=== PATIENT | female | born 1945 | race Hispanic/Latino ===

== ENCOUNTER 2017-02-16 08:44 | Outpatient (CLI) | payer MEDICARE, OTHER ==
--- NOTE | 2017-02-16 09:20 | Mammography Report ---
BONE DENSITY STUDY: DEFINITIONS: BMD = Bone Mineral Density T-score = BMD related to mean peak bone mass of young adult (mean expressed in Standard Deviation) Z-score = Age matched BMD expressed in SD World Health Organization (WHO) Diagnostic Criteria Normal T-score > -1 SD Osteopenia T-score between -1 and -2.4 SD Osteoporosis T-score -2.5 SD or below FINDINGS: The weighted average BMD of lumbar spine L1-L4 is 1.036 with a T-score of -0.1. The weighted average BMD of the left hip is 0.784 with a T-score of -1.3. When compared to prior exam in 2015 there is mild generalized improvement in the bone density of the lumbar spine and mild worsening of the left hip. IMPRESSION: The patient's average T-score is diagnostic for osteopenia and average relative risk for fracture. NOTE: BMD is not the only risk factor for fracture; also consider factors such as the patient's age, risk of falling, previous osteoporotic fracture, family history of osteoporotic fractures, current smoker, and low body weight. Vivas's triangle is a region of interest in femur, predominantly of trabecular bone. It is not a true anatomic site, and [facility] does not recommend its use clinically.
== END 2017-02-16 08:45 | disposition home or self-care (01) ==
LOC: MAMMO 08:44
PROVIDERS: ATTEND Family Medicine
DX: M85.88 Other specified disorders of bone density and structure, other site (principal); I10 Essential (primary) hypertension; E78.00 Pure hypercholesterolemia, unspecified
CPT/HCPCS: 77080

== ENCOUNTER 2019-01-07 13:15 | Emergency (ER) | payer MEDICARE, OTHER ==
[2019-01-07] MEDS ORDERED: CARDIZEM IV ONE (13:29)
[2019-01-07] MEDS ORDERED: CARDIZEM ONE (13:29)
[2019-01-07 13:50] LABS: Basophils % (Auto) 0.8 % (0.0-1.8); Eosinophils # (Auto) 0.2 K/mm3 (0.0-0.4); Eosinophils % (Auto) 3.3 % (0.0-4.3); Hematocrit 44.4 % (30.3-42.9); Hemoglobin 15.1 gm/dl (10.1-14.3); Lymphocytes # (Auto) 2.2 K/mm3 (1.2-5.4); Lymphocytes % (Auto) 35.3 % (13.4-35.0); Mean Corpuscular HGB Conc 34 % (30-34); Mean Corpuscular Volume 86 fl (79-97); Monocytes # (Auto) 0.5 K/mm3 (0.0-0.8); Monocytes % (Auto) 8.1 % (0.0-7.3); Platelet Count 256 K/mm3 (140-440); Red Blood Count 5.15 M/mm3 (3.65-5.03)
[2019-01-07 14:10] LABS: Creatine Kinase MB 4.2 ng/mL (0.0-4.0)
[2019-01-07 14:11] LABS: BUN/Creatinine Ratio 20; Blood Urea Nitrogen 10 mg/dL (7-17); Calcium 9.9 mg/dL (8.4-10.2); Hemolysis Index 15
--- NOTE | 2019-01-07 14:12 | Emergency Department Report ---
ED General Adult HPI - General Chief complaint: Arrhythmia/Palpitations Stated complaint: CHEST PAIN Time Seen by Provider: 01/07/19 13:28 Source: patient, EMS Mode of arrival: Stretcher Limitations: No Limitations - History of Present Illness Initial comments: 73-year-old female was sent for evaluation by her economic analyst Dr. Osmani ferriera. She states that she was there for 6 month follow-up. She is being followed and evaluated for episodes of tachycardia. She has worn a Holter monitor in the past which was apparently negative. She has never been specifically diagnosed with an arrhythmia. Today she was found to be in an ectopic atrial rhythm at about 140. She was sent to the emergency department on that basis. She stated that she frequently gets episodes similar to this which often occur on exertion. They may also occur when she is "nervous". She has no known history of coronary artery disease. She does have history of hypertension. She has no history of thyroid disorder. Prehospital EKG 12-lead was reviewed. It appears to me the patient has a very short PA interval consistent with an atrial tachycardia at approximately 140. I do not see flutter waves. I do not see 2-1. She has nonspecific repolarization abnormalities. -: Sudden, minutes(s) Severity scale (0 -10): 0 Consistency: constant Improves with: none Worsens with: none Associated Symptoms: denies other symptoms - Related Data Home Medications Medication Instructions Recorded Confirmed Last Taken Carvedilol 1 tab PO BID 07/18/13 07/18/13 07/17/13 Lisinopril 1 tab PO QDAY 07/18/13 07/18/13 07/17/13 Simvastatin 1 tab PO QDAY 07/18/13 07/18/13 07/16/13 Previous Rx's Medication Instructions Recorded Last Taken Type Apixaban [Eliquis] 5 mg PO BID #60 tablet 01/07/19 Unknown Rx Metoprolol [Lopressor] 25 mg PO BID #60 tablet 01/07/19 Unknown Rx Allergies Allergy/AdvReac Type Severity Reaction Status Date / Time No Known Allergies Allergy Verified 07/18/13 09:04 ED Review of Systems ROS: Stated complaint: CHEST PAIN Other details as noted in HPI Constitutional: denies: chills, fever Eyes: denies: eye pain, eye discharge, vision change ENT: denies: ear pain, throat pain Respiratory: denies: cough, shortness of breath, wheezing Cardiovascular: palpitations. denies: chest pain Endocrine: no symptoms reported Gastrointestinal: denies: abdominal pain, nausea, diarrhea Genitourinary: denies: urgency, dysuria, discharge Musculoskeletal: denies: back pain, joint swelling, arthralgia Skin: denies: rash, lesions Neurological: denies: headache, weakness, paresthesias Psychiatric: denies: anxiety, depression Hematological/Lymphatic: denies: easy bleeding, easy bruising ED Past Medical Hx - Past Medical History Previous Medical History?: Yes Hx Hypertension: Yes (10+ years) Hx GERD: Yes Additional medical history: aflutter - Surgical History Past Surgical History?: No - Social History Smoking Status: Never Smoker Substance Use Type: None - Medications Home Medications: Home Medications Medication Instructions Recorded Confirmed Last Taken Type Carvedilol 1 tab PO BID 07/18/13 07/18/13 07/17/13 History Lisinopril 1 tab PO QDAY 07/18/13 07/18/13 07/17/13 History Simvastatin 1 tab PO QDAY 07/18/13 07/18/13 07/16/13 History Apixaban [Eliquis] 5 mg PO BID #60 tablet 01/07/19 Unknown Rx Metoprolol [Lopressor] 25 mg PO BID #60 tablet 01/07/19 Unknown Rx ED Physical Exam - General Limitations: No Limitations General appearance: alert, in no apparent distress - Head Head exam: Present: atraumatic, normocephalic - Eye Eye exam: Present: normal appearance. Absent: scleral icterus - ENT ENT exam: Present: mucous membranes moist - Neck Neck exam: Present: normal inspection - Respiratory Respiratory exam: Present: normal lung sounds bilaterally. Absent: respiratory distress - Cardiovascular Cardiovascular Exam: Present: regular rate, tachycardia. Absent: systolic murmur, diastolic murmur, rubs, gallop - GI/Abdominal GI/Abdominal exam: Present: soft, normal bowel sounds. Absent: distended, tenderness, guarding - Extremities Exam Extremities exam: Present: normal inspection, normal capillary refill. Absent: calf tenderness - Back Exam Back exam: Present: normal inspection - Neurological Exam Neurological exam: Present: alert, oriented X3, CN II-XII intact. Absent: motor sensory deficit - Psychiatric Psychiatric exam: Present: normal affect, normal mood - Skin Skin exam: Present: warm, dry, intact, normal color. Absent: rash ED Course Vital Signs 01/07/19 01/07/19 01/07/19 13:22 13:25 13:30 Temperature 98.2 F Pulse Rate 140 H 137 H 136 H Respiratory 12 15 15 Rate Blood Pressure 182/111 171/104 Blood Pressure 160/100 [Right] O2 Sat by Pulse 97 97 97 Oximetry 01/07/19 01/07/19 01/07/19 13:31 13:45 14:00 Temperature Pulse Rate 75 76 Respiratory 15 10 L 14 Rate Blood Pressure 146/88 156/91 Blood Pressure [Right] O2 Sat by Pulse 98 97 97 Oximetry 01/07/19 01/07/19 14:15 14:31 Temperature Pulse Rate 74 71 Respiratory 13 9 L Rate Blood Pressure 147/83 168/75 Blood Pressure [Right] O2 Sat by Pulse 97 95 Oximetry - Reevaluation(s) Reevaluation #1: Patient was found to have a slightly elevated d-dimer. This was discussed with cardiology. They stated and I agree that there is no clinical correlation. I recommended patient be discharged without further workup for DVT. They will be following the patient in the office. We will be giving the patient on Emma Marisa and Lopressor. 01/07/19 15:14 Reevaluation #2: The patient remained asymptomatic after cardioversion. Post EKG showed no evidence of acute ischemia and normal sinus rhythm. She will follow up with cardiology. 01/07/19 15:16 ED Medical Decision Making - Lab Data Result diagrams: 01/07/19 Unknown 01/07/19 Unknown Laboratory Results - last 24 hr 01/07/19 01/07/19 01/07/19 Unknown Unknown Unknown WBC 6.1 RBC 5.15 H Hgb 15.1 H Hct 44.4 H MCV 86 MCH 29 MCHC 34 RDW 19.0 H Plt Count 256 Lymph % (Auto) 35.3 H Phelps % (Auto) 8.1 H Eos % (Auto) 3.3 Baso % (Auto) 0.8 Lymph # 2.2 Phelps # 0.5 Eos # 0.2 Baso # 0.0 Seg Neutrophils % 52.5 Seg Neutrophils # 3.2 Sodium 140 Potassium 4.3 Chloride 101.0 Carbon Dioxide 24 Anion Gap 19 BUN 10 Creatinine 0.5 L Estimated GFR > 60 BUN/Creatinine Ratio 20 Glucose 96 Calcium 9.9 Magnesium 1.90 Total Creatine Kinase 151 H CK-MB (CK-2) 4.2 H CK-MB (CK-2) Rel Index 2.7 Troponin T < 0.010 NT-Pro-B Natriuret Pep 90.22 Laboratory Results - last 24 hr 01/07/19 01/07/19 01/07/19 Unknown Unknown Unknown WBC 6.1 RBC 5.15 H Hgb 15.1 H Hct 44.4 H MCV 86 MCH 29 MCHC 34 RDW 19.0 H Plt Count 256 Lymph % (Auto) 35.3 H Phelps % (Auto) 8.1 H Eos % (Auto) 3.3 Baso % (Auto) 0.8 Lymph # 2.2 Phelps # 0.5 Eos # 0.2 Baso # 0.0 Seg Neutrophils % 52.5 Seg Neutrophils # 3.2 PT 12.6 INR 0.97 APTT 28.2 D-Dimer 281.03 H Sodium 140 Potassium 4.3 Chloride 101.0 Carbon Dioxide 24 Anion Gap 19 BUN 10 Creatinine 0.5 L Estimated GFR > 60 BUN/Creatinine Ratio 20 Glucose 96 Calcium 9.9 Magnesium 1.90 Total Creatine Kinase 151 H CK-MB (CK-2) 4.2 H CK-MB (CK-2) Rel Index 2.7 Troponin T < 0.010 NT-Pro-B Natriuret Pep TSH 01/07/19 01/07/19 Unknown Unknown WBC RBC Hgb Hct MCV MCH MCHC RDW Plt Count Lymph % (Auto) Phelps % (Auto) Eos % (Auto) Baso % (Auto) Lymph # Phelps # Eos # Baso # Seg Neutrophils % Seg Neutrophils # PT INR APTT D-Dimer Sodium Potassium Chloride Carbon Dioxide Anion Gap BUN Creatinine Estimated GFR BUN/Creatinine Ratio Glucose Calcium Magnesium Total Creatine Kinase CK-MB (CK-2) CK-MB (CK-2) Rel Index Troponin T NT-Pro-B Natriuret Pep 90.22 TSH 1.890 - EKG Data -: EKG Interpreted by Me Rate: tachycardia - EKG Data Interpretation: nonspecific ST-T wave marci, other (ectopic atrial tachycardia) - Radiology Data Radiology results: image reviewed (likely hiatal hernia, otherwise unremarkable cardiopulmonary image) Critical care attestation.: If time is entered above; I have spent that time in minutes in the direct care of this critically ill patient, excluding procedure time. ED Disposition Clinical Impression: Ectopic atrial tachycardia Disposition: - TO HOME OR SELFCARE Is pt being admited?: No Does the pt Need Aspirin: No Condition: Stable Instructions: Supraventricular Tachycardia (ED) Additional Instructions: Rx as directed. Follow-up with Dr. Reyes. Return any further problem. Prescriptions: Apixaban [Eliquis] 5 mg PO BID #60 tablet Metoprolol [Lopressor] 25 mg PO BID #60 tablet Referrals: ROBERT MONTEJO MD [Staff Physician] - 3-5 Days Time of Disposition: 15:17
[2019-01-07 14:15] LABS: INR 0.97 (0.87-1.13)
[2019-01-07 14:16] LABS: Partial Thromboplastin Time 28.2 Sec. (24.2-36.6)
--- NOTE | 2019-01-07 15:27 | Consultation ---
History of Present Illness Consult date: 01/07/19 Requesting physician: GRAHAM BOUDREAUX Consult reason: atrial fibrillation History of present illness: The pt is a 73 YO female with a past medical history of HTN, PSVT. She is followed in our office by Dr. Alissa Montoya (previously followed by Dr. Nathanael Reyes). She presented today to our office for scheduled appt with c/o p alpitations and dyspnea and was found to be in AFlutter with RVR and was referred to ED for further eval/management. Following arrival to ED, pt found to be in apparent AFlutter with RVR. Shortly after arrival to ED, she spontaneously converted to NSR without any intervention required. Pt reports that she has experienced intermittent palpitations, particularly with activity, for several years but has had no formal diagnosis of AFib or AFlutter as her symptoms usually resolve within 1 hour so she does not usually seek additional evaluation. Pt denies any occurrence of chest pain, n/v, diaphoresis, dizziness or syncope. Echo done 11/2017 showed mild LVH, normal LVEF, LA dilated. LHC done 03/2006 showed normal coronary anatomy. PET MPI done 05/2018 showed small mildly reversible apical perfusion defect (artifact v mild ischemia), no TID, EF 78%. Holter study done 05/2018 showed supraventricular ectopies and supraventricular tachycardia, fastest run was 140bpm. Past History Past Medical History: hypertension Medications and Allergies Allergies Allergy/AdvReac Type Severity Reaction Status Date / Time No Known Allergies Allergy Verified 07/18/13 09:04 Home Medications Medication Instructions Recorded Confirmed Last Taken Type Carvedilol 1 tab PO BID 07/18/13 07/18/13 07/17/13 History Lisinopril 1 tab PO QDAY 07/18/13 07/18/13 07/17/13 History Simvastatin 1 tab PO QDAY 07/18/13 07/18/13 07/16/13 History Apixaban [Eliquis] 5 mg PO BID #60 tablet 01/07/19 Unknown Rx Metoprolol [Lopressor] 25 mg PO BID #60 tablet 01/07/19 Unknown Rx Review of Systems Constitutional: no weight loss, no weight gain, no fever, no chills, no sweats Ears, nose, mouth and throat: no ear pain, no nose pain, no sinus pressure, no sinus pain Cardiovascular: palpitations, shortness of breath, no chest pain, no orthopnea Respiratory: shortness of breath, no cough, no congestion, no wheezing, no pain on inspiration Gastrointestinal: no abdominal pain, no nausea, no vomiting, no diarrhea, no constipation, no change in bowel habits Genitourinary Female: no pelvic pain, no flank pain, no dysuria, no urinary frequency, no urgency Musculoskeletal: no neck stiffness, no neck pain, no shooting arm pain, no arm numbness/tingling, no low back pain, no shooting leg pain Integumentary: no rash, no pruritis, no redness, no sores, no wounds Neurological: no head injury, no paralysis, no weakness, no parathesias, no numbness, no tingling, no seizures, no syncope Psychiatric: no anxiety Endocrine: no cold intolerance, no heat intolerance Hematologic/Lymphatic: no easy bruising, no easy bleeding Allergic/Immunologic: no urticaria, no wheezing Physical Examination Vital Signs Pulse Resp BP Pulse Ox 142 H 21 182/111 98 01/07/19 13:22 01/07/19 13:22 01/07/19 13:22 01/07/19 13:22 General appearance: no acute distress HEENT: Positive: PERRL, Normocephaly, Mucus Membranes Moist Neck: Positive: neck supple, trachea midline Cardiac: Positive: Reg Rate and Rhythm, S1/S2 Lungs: Positive: Decreased Breath Sounds Neuro: Positive: Grossly Intact Abdomen: Positive: Soft. Negative: Tender Skin: Negative: Rash, Wound Musculoskeletal: No Pain Extremities: Absent: edema Results 01/07/19 Unknown 01/07/19 Unknown Cardiac Enzymes 01/07/19 Range/Units Unknown CK-MB (CK-2) 4.2 H (0.0-4.0) ng/mL Coagulation 01/07/19 Range/Units Unknown PT 12.6 (12.2-14.9) Sec. INR 0.97 (0.87-1.13) APTT 28.2 (24.2-36.6) Sec. CBC 01/07/19 Range/Units Unknown WBC 6.1 (4.5-11.0) K/mm3 RBC 5.15 H (3.65-5.03) M/mm3 Hgb 15.1 H (10.1-14.3) gm/dl Hct 44.4 H (30.3-42.9) % Plt Count 256 (140-440) K/mm3 Lymph # 2.2 (1.2-5.4) K/mm3 Baxter # 0.5 (0.0-0.8) K/mm3 Eos # 0.2 (0.0-0.4) K/mm3 Baso # 0.0 (0.0-0.1) K/mm3 Comprehensive Metabolic Panel 01/07/19 Range/Units Unknown Sodium 140 (137-145) mmol/L Potassium 4.3 (3.6-5.0) mmol/L Chloride 101.0 (98-107) mmol/L Carbon Dioxide 24 (22-30) mmol/L BUN 10 (7-17) mg/dL Creatinine 0.5 L (0.7-1.2) mg/dL Glucose 96 (65-100) mg/dL Calcium 9.9 (8.4-10.2) mg/dL - Imaging and Cardiology Echo: report reviewed (05/2018 showed small mildly reversible apical perfusion defect (artifact v mild ischemia), no TID, EF 78%. ) Cardiac cath: report reviewed (03/2006 showed normal coronary anatomy. ) Holter: report reviewed (05/2018 showed supraventricular ectopies and supraventricular tachycardia, fastest run was 140bpm. ) EKG: report reviewed, image reviewed EKG interpretations - Telemetry EKG Rhythm: Sinus Rhythm - EKG Supraventricular dysrhythmia: atrial flutter Assessment and Plan Pt spontaneously converted to NSR and remains in NSR on evaluation with no current complaints. Labwork is unremarkable. Currently stable cardiac status. Pt may discharge home from cardiology standpoint. At discharge, recommend discontinuation of home lisinopril and rx for lopressor 25mg BID and Eliquis 5mg BID. Cont home cardizem. D/w Dr. Boudreaux. Recommend pt follow up in our office with Dr. Alissa Montoya within 1-2 weeks ([phone]). Pt and pt's at bedside verbalize understanding. The patient has been seen in conjunction with Dr. Keenan who agrees with the assessment and plan of care. - Patient Problems (1) Paroxysmal atrial flutter Status: Chronic (2) HTN (hypertension) Status: Chronic
[2019-01-07 16:10] VITALS: BP 151/79
--- NOTE | 2019-01-07 16:37 | XRay Report ---
PROCEDURE: XR CHEST 1V AP TECHNIQUE: Chest radiograph single view. HISTORY: Dysrhythmia COMPARISONS: None . FINDINGS: Heart: Normal. Mediastinum/Vessels: Normal. Lungs/Pleural space: Linear opacities are seen in the periphery of the left lung base. No consolidat ion, pleural effusion or pneumothorax. Bony thorax: No acute osseous abnormality. Life support devices: None. There is a moderate hiatal hernia. IMPRESSION: Mild subsegmental left lower lobe atelectasis. Moderate hiatal hernia. This document is electronically signed by Ginny Cruz., January 07 2019 04:35:31 PM ET
== END 2019-01-07 15:38 | disposition home or self-care (01) ==
LOC: ED 13:15
DX: I47.1 Supraventricular tachycardia (principal); I10 Essential (primary) hypertension; K21.9 Gastro-esophageal reflux disease without esophagitis; I48.92 Unspecified atrial flutter
CPT/HCPCS: 36415; 71045; 80048; 82550; 82553; 83735; 83880; 84443; 84484; 85025; 85379; 85610; 85730; 93005; 93010